=== PATIENT | female | born 1975 | race Caucasian/White ===

== ENCOUNTER 2024-02-07 08:04 | Day surgery (SDC) | payer MEDICAID, SELFPAY ==
[2024-02-07] VITALS (7 sets, daily range): BP systolic 79–115; BP diastolic 60–82; PULSE 72–82; RESP 16; TEMP 35.9–36.8; O2SAT 100; BMI 18.8
--- NOTE | 2024-02-07 08:21 | H&P.OPEN ---
[facility] - General General Date of Service: 02/07/24 HPI Narrative CHAS ORTEGA, is a 48 F who presents for screening colonoscopy. Patient is never had previous colonoscopy patient denies any family history of colon cancer. Patient's father did have a colostomy unsure the exact reason but appreciate it was not cancer. Patient has bowel movements daily denies any blood. Patient denies any chronic abdominal pain/nausea/vomiting/reflux. [facility] Medical History (Updated 02/02/24 @ 11:38 by Carolyn Quintanilla) ADHD Alcohol use Anemia Anxiety Former smoker Marijuana use Wears contact lenses Wears glasses Home Medications buspirone 10 mg tablet 10 mg PO BID 01/11/24 [History Last Taken 02/07/24 06:30] cholecalciferol (vitamin D3) 50 mcg (2,000 unit) capsule 50 mcg PO DAILY 01/11/24 [History Last Taken Unknown] magnesium oxide 400 mg PO DAILY 01/11/24 [History Last Taken Unknown] vitamin B complex (Complex B-100 tablet,extended release) 1 tab PO DAILY 01/11/24 [History Last Taken Unknown] Allergy/AdvReac Type Severity Reaction Status Date / Time No Known Allergies Allergy Verified 02/07/24 08:28 Family History (Updated 01/11/24 @ 12:29 by Susan Kenney) Father Colon polyps Colostomy status Father No problems noted. Surgical History (Updated 02/02/24 @ 11:38 by Carolyn Quintanilla) Hx of oral surgery Hx of wisdom tooth extraction Social History Smoking Status: Former smoker Past Medical/Surgical History Planned Operation Planned Operative Procedure/s: CSCOPE OA Previous Hospitalizations/Surgeries HX Hospitalizations: No Any Problems With Anesthesia: No You/Your Family Experience Fever (Hyperthermia) With Anes: No Cholinesterase deficiency: No Cardiovascular Hx Hypertension: No Respiratory Hx Sleep Apnea: No Hx Respiratory Tract Infection/Cold (presently): No Do You Snore Loudly (louder than talking or can be heard): No Do You Often Feel Tired/ Fatigued/ Sleepy Dring Daytime?: No Has Anyone Observed You Stop Breathing During Sleep?: No Result (for STOP score): Negative Smoking Status: Former smoker Neurological Does patient have nerve stimulator: No Reproduction : No Allergies No Known Allergies Allergy (Verified 02/07/24 08:28) Discharge Is Pt Admitted From a Long-Term, or a Shelter: No After D/C, Where Do you Plan to Go: Return Home Physical Exam Const alert, oriented x3 and no apparent distress HEENT normocephalic and head/scalp atraumatic Resp normal respiratory effort Cardio regular rate GI soft to palpation and non-tender; Negative for non-distended Palpation: Negative for guarding Extremity no clubbing, cyanosis or edema Skin no rashes or lesions noted Neuro CN's II-XII intact bilaterally Psych mental status grossly normal Assessment & Plan Assessment/Plan (1) Encounter for screening for malignant neoplasm of colon: Surgery Risks - Colonoscopy I discussed with the patient the risks of the procedure: Yes Risks Include but are not Limited To: Risks include but are not limited to: Bleeding, perforation requiring further surgery, inability to complete colonoscopy requiring barium enema.
--- OUTSIDE RECORDS SUMMARY | 2024-02-07 08:26 | XMS RPT_ITS | CCD ---
Author Name Unknown Address [address] [place] [address] Organization [facility] Care Team Providers Care Hot Strip Mill Inspector Name Role Phone PHYSICIAN, NO PCP Primary Care Unavailable Unavailable Primary Care Provider UnavailCHAPARRO Ledezma Attending Unavailable JESSICA MORTON Referring Unavailable JESSICA MORTON Referring Unavailable Medications Completed/Discontinued Medications Medication Drug Class(es) Dates Sig (Normalized) Sig (Original) busPIRone hydrochloride 10 mg oral tablet (1 source) Start: 10-06-2023 take 1 tablet by mouth every twelve hours busPIRone (BUSPAR) 10 mg tablet Take 1 tablet by mouth every 12 hours. 0 10/06/2023 Active Problems Active Problems Problem Classification Problem Date Documented Date Episodic/Chronic Alcohol-related disorders (1 source) Alcohol dependence, uncomplicated; Translations: [History of dementia associated with alcoholism (HCC)] Onset: 05-16-2023 Chronic Immunizations and screening for infectious disease (2 sources) Patient encounter status; Translations: [Encounter for screening for human papillomavirus (HPV)] 11-02-2023 Episodic Other screening for suspected conditions (not mental disorders or infectious disease) (1 source) Cancer cervix screening status; Translations: [Encounter for screening for malignant neoplasm of cervix] 11-02-2023 Episodic Past or Other Problems Problem Classification Problem Date Documented Da te Episodic/Chronic Other nutritional; endocrine; and metabolic disorders (1 source) Abnormal weight loss; Translations: [Loss of weight] Onset: 07-11-2023 Episodic Screening and history of mental health and substance abuse codes (1 source) Personal history of other mental and behavioral disorders; Translations: [History of dementia associated with alcoholism (HCC)] Onset: 05-16-2023 Episodic Results Test Name Value Interpretation Reference Range Facil ity Vital Signs Date Time Vital Sign Value Performing Clinician Faci lity 11-02-2023 14:02-0500 Body height 167 cm Chaparro Parhamcalf REGION MANAGER.WORM FARMER Work Phone: [facility] 11-02-2023 14:02-0500 Body weight 55.34 kg Chaparro Parhamcalf REGION MANAGER.WORM FARMER Work Phone: [facility] 11-02-2023 14:02-0500 Diastolic blood pressure 64 mm[Hg] Chaparro Geronimo REGION MANAGER.WORM FARMER Work Phone: [facility] 11-02-2023 14:02-0500 Systolic blood pressure 110 mm[Hg] Chaparro Feli REGION MANAGER.WORM FARMER Work Phone: [facility] Encounters Encounter Date Encounter Type Care Provider Facility Start: 11-02-2023 End: 11-02-2023 ambulatory CHAPARRO PARHAMCALF Facility:[facility] Start: 11-02-2023 End: 11-02-2023 Patient encounter procedure Chaparroblack Montesf REGION MANAGER.WORM FARMER Work Phone: OB/Gynecology Plan of Treatment Date Care Activity Detail Author Start: 07-11-2026 Diabetes Screening Diabetes Screening [facility] Start: 07-28-2023 Influenza vaccination Influenza Vaccine (#1) [facility] Start: 2022 Cologuard (FIT-DNA) Cologuard (FIT-DNA) [facility] Start: 2022 Colonoscopy Colonoscopy [facility] Start: 2022 Colorectal Cancer Screening Colorectal Cancer Screening [facility] Start: [address] Colonography [facility] Start: 2022 Fecal Occult Blood Fecal Occult Blood [facility] Start: 2022 Lipid 1996 panel - Serum or Plasma Lipid Screening [facility] Start: 2022 Sigmoidoscopy Sigmoidoscopy [facility] Start: 11-27-2022 Depression Assessment Depression Assessment [facility] Start: 2017 Mammography Mammogram Screening [facility] Start: 2007 HPV Testing HPV Testing [facility] Start: 1998 Pap Testing Pap Testing [facility] Start: 1996 Urine microalbumin profile DTaP,Tdap,Td Vaccine (1 - Tdap) [facility] Start: 1995 Hepatitis C Screening Hepatitis C Screening [facility] Start: 1995 HIV Screening HIV Screening [facility] Start: 06-09-1978 Covid-19 Vaccine (#1) Covid-19 Vaccine (#1) [facility] Start: 1975 Hepatitis B Vaccine (1 of 3 - 3-dose series) Hepatitis B Vaccine (1 of 3 - 3-dose series) [facility] End: 12-01-2024 LUISA SCREENING LUISA SCREENING Radiology Routine Encounter for screening mammogram for breast cancer 1 Occurrences starting 11/02/2023 until 12/01/2024 [facility] Work Phone: Payers Date Payer Category Payer Medicaid [employer] [id number] 2023-Present [phone] [address] [place] [address] Medicaid [id number] 2023 Medicaid [id number] 2022 [facility] [id number] 1975 Unknown [id number] Social History Date Type Detail Facility Start: 11-02-2023 Tobacco smoking status NHIS Ex-smoker [facility] Work Phone: History of tobacco use Current smoker [facility] Work Phone: History of tobacco use Cigarette Smoker [facility] Work Phone: Start: 11-02-2023 Tobacco use and exposure Smokeless tobacco non-user [facility] Work Phone: Start: 11-02-2023 Alcohol intake Ex-drinker (finding) [facility] Start: 11-02-2023 History of Social function [facility] Start: 11-02-2023 Tobacco use panel [facility] National Score (1-100), lower number is lower risk 48 [facility] Start: 11-02-2023 Education 17 [facility] Start: 11-02-2023 Tobacco Comment [facility] Start: 11-02-2023 Alcohol Comment 10 yr recovery for alcoholism [facility] Start: 1975 Sex Assigned At [facility] file [facility] NEGATED: Highlighted rowStart: JOHANF History of tobacco use Passive smoker [facility] Work Phone: Progress note 11-02-2023 Note Date & Type Note Facility 11-02-2023 Note HNO ID: [id number] Author: Chaparro Yan APRN.WORM FARMER Service: ? Author Type: Nurse Practitioner Type: Progress Notes Filed: 11/02/2023 2:30 PM Note Text: patient declined folder seamer Lea is a 47 year old who presents for an annual gynecologic exam without complaints. Menses: cycles every 25-30 days and 6-7 days of flow. Contraception: none HPV vaccine: No Last Pap: never Last mammogram: never Sexually active: Yes History of STDS: None OB History T0 L0 SAB0 IAB0 Ectopic0 Multiple0 Live Births0 General Duty Nurse History LMP: 10/12/2023, Having periods Age at Menarche: Age at First : Age at Menopause: General Duty Nurse History Comments: Sexual Activity: Yes; Female Contraception: No contraception data on record PAST MEDICAL HISTORY Diagnosis Date Alcohol dependence (HCC) recovery x10 yrs Generalized anxiety disorder PAST SURGICAL HISTORY Procedure Laterality Date NONE FAMILY HISTORY Problem Relation Age of Onset Vertigo Mother Lymphoma Father No Known Problems Brother SOCIAL HISTORY Social History Tobacco Use Smoking status: Former Types: Cigarettes Passive exposure: Never Smokeless tobacco: Never Tobacco comments: Pt vapes Vaping Use Vaping Use: current everyday user Substances: Nicotine Substance Use Topics Alcohol use: Not Currently Comment: 10 yr recovery for alcoholism Drug use: Never REVIEW OF SYSTEMS Abdomen: No abdominal pain, nausea, vomiting, diarrhea, or constipation. No bloating, early satiety, indigestion, or increased flatulence. Bladder: No dysuria, gross hematuria, urinary frequency, urinary urgency, or incontinence. Breast: No breast lumps, nipple d/c, overlying skin changes, redness or skin retraction. Allergies and current medication updated:Yes EXAM: Ht 5' 5.75 (1.67m) Wt 122 lb (55.3kg) LMP 10/12/2023 BMI 19.84 kg/(m2). GENERAL: pleasant, female in no apparent distress HEENT: Normocephalic, atraumatic, mucus membranes moist, and no lesions NECK: Supple, full range of motion, no adenopathy, and thyroid normal DERMATOLOGY: Normal, without lesions, non-icteric, and non-hirsute BREAST: soft, non-tender, symmetric, no dominant mass, normal nipple-areolar complex, no lymphadenopathy, and no nipple discharge CHEST: Normal inspiratory effort ABDOMEN: soft, non-tender, and no masses PELVIC: external genitalia normal, normal Bartholin's glands, urethra, Anamosa's glands, no vulvar lesions, no cervical lesions, good vaginal support, physiologic discharge present, normal appearing perineal body and perianal region BIMANUAL: uterus normal size, shape and consistency, no adnexal masses, and non-tender RECTOVAGINAL: deferred. NEURO: alert and oriented x3,exam grossly non-focal EXTREMITIES: normal ASSESSMENT/PLAN: 1) Health maintenance: Pap done with HPV. Mammogram ordered. Nutrition, exercise and routine health maintenance exams reviewed. Calcium/Vitamin D supplementation information provided. 2) Contraception: none. Contraceptive options reviewed and information provided. 3) STD screening: Declined STD check. 4) Follow up one year or sooner as needed Chaparro Yan APRN.NEREIDA [facility] History of Present illness Narrative 11-02-2023 Chaparro Yan APRN.NEREIDA - 11/02/2023 2:02 PM EST Note Date & Type Note Facility 11-02-2023 History of Presen t illness Narrative patient declined folder seamer Lea is a 47 year old who presents for an annual gynecologic exam without complaints. Menses: cycles every 25-30 days and 6-7 days of flow. Contraception: none HPV vaccine: No Last Pap: never Last mammogram: never Sexually active: Yes History of STDS: None OB History T0 L0 SAB0 IAB0 Ectopic0 Multiple0 Live Births0 General Duty Nurse History LMP: 10/12/2023, Having periods Age at Menarche: Age at First : Age at Menopause: General Duty Nurse History Comments: Sexual Activity: Yes; Female Contraception: No contraception data on record PAST MEDICAL HISTORY Diagnosis Date Alcohol dependence (HCC) recovery x10 yrs Generalized anxiety disorder PAST SURGICAL HISTORY Procedure Laterality Date NONE FAMILY HISTORY Problem Relation Age of Onset Vertigo Mother Lymphoma Father No Known Problems Brother SOCIAL HISTORY Social History Tobacco Use Smoking status: Former Types: Cigarettes Passive exposure: Never Smokeless tobacco: Never Tobacco comments: Pt vapes Vaping Use Vaping Use: current everyday user Substances: Nicotine Substance Use Topics Alcohol use: Not Currently Comment: 10 yr recovery for alcoholism Drug use: Never REVIEW OF SYSTEMS Abdomen: No abdominal pain, nausea, vomiting, diarrhea, or constipation. No bloating, early satiety, indigestion, or increased flatulence. Bladder: No dysuria, gross hematuria, urinary frequency, urinary urgency, or incontinence. Breast: No breast lumps, nipple d/c, overlying skin changes, redness or skin retraction. Allergies and current medication updated:Yes EXAM: Ht 5' 5.75 (1.67m) Wt 122 lb (55.3kg) LMP 10/12/2023 BMI 19.84 kg/(m^2). GENERAL: pleasant, female in no apparent distress HEENT: Normocephalic, atraumatic, mucus membranes moist, and no lesions NECK: Supple, full range of motion, no adenopathy, and thyroid normal DERMATOLOGY: Normal, without lesions, non-icteric, and non-hirsute BREAST: soft, non-tender, symmetric, no dominant mass, normal nipple-areolar complex, no lymphadenopathy, and no nipple discharge CHEST: Normal inspiratory effort ABDOMEN: soft, non-tender, and no masses PELVIC: external genitalia normal, normal Bartholin's glands, urethra, Anamosa's glands, no vulvar lesions, no cervical lesions, good vaginal support, physiologic discharge present, normal appearing perineal body and perianal region BIMANUAL: uterus normal size, shape and consistency, no adnexal masses, and non-tender RECTOVAGINAL: deferred. NEURO: alert and oriented x3,exam grossly non-focal EXTREMITIES: normal ASSESSMENT/PLAN: 1) Health maintenance: Pap done with HPV. Mammogram ordered. Nutrition, exercise and routine health maintenance exams reviewed. Calcium/Vitamin D supplementation information provided. 2) Contraception: none. Contraceptive options reviewed and information provided. 3) STD screening: Declined STD check. 4) Follow up one year or sooner as needed Chaparro Yan APRN.NEREIDA documented in this encounter [facility] Evaluation note Note Date & Type Note Facility documented in this encounter [facility] Reason for referral (narrative) Diagnostic Procedure Only (Routine) - Authorized Note Date & Type Note Facility Referral ID Status Reason Start Date Expiration Date Visits Requested Visits Authorized [id number] Authorized Auto-Generat ed Referral 11/02/2023 12/01/2024 1 1 [facility] Summary Purpose Family History No Family History Records FoundNo Family History Records FoundNo Family History Records Found Advance Directives No Advanced Directives Records FoundNo Advanced Directives Records FoundNo Advanced Directives Records Found Additional Source Comments INFORMATION SOURCE (unrecogn ized section and content) DATE CREATED AUTHOR AUTHOR'S ORGANIZ ATION 03/29/2022 [facility] DATE CREATED AUTHOR AUTHOR'S ORGANIZ ATION 11/14/2023 [facility] Source Comments (unrecognize d section and content) In the event this informatio n is protected by the Federal Confidentiality of Alcohol and Drug Abuse Patient Records regulations: The Federal rules restrict any use of the information to criminally investigate or prosecute any alcohol or drug abuse patient.[facility] Reason for Visit (unrecogniz ed section and content) FOR RECORDS PERTAINING TO PATIENTS WHO ARE OR HAVE BEEN ENROLLED IN A CHEMICAL DEPENDENCY/SUBSTANCEABUSE PROGRAM, SOME INFORMATION MAY BE OMITTED. This clinical summary was aggregated from multiple sources. Caution should be exercised in using it in the provision of clinical care. This summary normalizes information from multiple sources, and as a consequence, information in this document may materially change the coding, format and clinical context of patient data. In addition, data may be omitted in some cases. CLINICAL DECISIONS SHOULD BE BASED ON THE PRIMARY CLINICAL RECORDS. [facility] [employer] [facility]. provides no warranty or guarantee of the accuracy or completeness of information in this document.
[2024-02-07] MEDS: Lactated Ringers 1,000 ML 15 ML IV (08:41)
[2024-02-07 08:50] LABS: Internal QC Validated? YES +Cl - CLEAR BKGD; Pregnancy, Urine Negative Negative; Record Kit Lot#,Urine Preg HCG0000718086
--- NOTE | 2024-02-07 09:30 | COLBX_PTH ---
PATHOLOGY RESULTS PATIENT: CHAS ORTEGA LOC: EN U#:[id number] AGE/SX: 48/F ROOM: RE02/07/[address]: Dr. Jane Santiago MD : 1975 BED: DIS: 02/07/2024 SPEC #: [id number] RECD: 02/07/24 13:15 STATUS: MILAGRO RETricia #: [id number] SUSI: 02/07/24 09:[address]: Jane Santiago DEPT: SURGICAL PATHOLOGY RECD BY: Brigida Latif ENTERED: 02/07/24 13:15 SP TYPE: COLON BX OTHR DR: Arlin [facility] Tissues: Rectum, NOS Procedures: Surgery Specimen Level IV HEADER OPERATION: Colonoscopy, open access, polypectomy PRE-OP DIAGNOSIS: Encounter for screening for malignant neoplasm of colon TISSUE SUBMITTED: Rectal polyp, snare and biopsy MICROSCOPIC DIAGNOSIS Rectal polyp, polypectomy; Fragments of tubular adenoma. SJ/mr 02/08/2024 MICROSCOPIC DESCRIPTION Slides are reviewed. GROSS DESCRIPTION Received in fixative is one container labeled with the patient's name and designated Rectal polyp. The specimen consists of multiple irregular fragments of light urban soft tissue that in aggregate measure 1.0 x 1.0 x 0.1 cm. The specimen is totally submitted in one cassette. / 02/07/2024 TC:1 CPT: 82766
--- NOTE | 2024-02-07 10:16 | OP.COLON_ITS ---
Patient Name: Linette Singh Procedure Date: 02/07/2024 9:17 AM Date of : 1975 Age: 48 Procedure: Colonoscopy Indications: Screening for colorectal malignant neoplasm Providers: Jane Santiago MD Referring MD: Jane Santiago MD Medicines: Monitored Anesthesia Care Patient Profile: This is a 48 year old female. Last Colonoscopy: none. The patient's first colonoscopy is today. Complications: No immediate complications. Procedure: Pre-Anesthesia Assessment: - Prior to the procedure, a History and Physical was performed, and patient medications and allergies were reviewed. The patient's tolerance of previous anesthesia was also reviewed. The risks and benefits of the procedure and the sedation options and risks were discussed with the patient. All questions were answered, and informed consent was obtained. Prior Anticoagulants: The patient has taken no anticoagulant or antiplatelet agents. ASA Grade Assessment: Per anesthesia. After reviewing the risks and benefits, the patient was deemed in satisfactory condition to undergo the procedure. - Prior to the procedure, a History and Physical was performed, and patient medications and allergies were reviewed. The patient's tolerance of previous anesthesia was also reviewed. The risks and benefits of the procedure and the sedation options and risks were discussed with the patient. All questions were answered, and informed consent was obtained. Prior Anticoagulants: The patient has taken no anticoagulant or antiplatelet agents. ASA Grade Assessment: Per anesthesia. After reviewing the risks and benefits, the patient was deemed in satisfactory condition to undergo the procedure. After I obtained informed consent, the scope was passed under direct vision. Throughout the procedure, the patient's blood pressure, pulse, and oxygen saturations were monitored continuously. The colonoscope was introduced through the anus and advanced to the cecum, identified by the appendiceal orifice, ileocecal valve and palpation. The colonoscopy was technically difficult and complex due to significant looping and a tortuous colon. The patient tolerated the procedure well. The quality of the bowel preparation was good. Scope In: 9:24:23 AM Scope Withdrawal Time 0 hours 26 minutes 2 seconds Scope Out: 10:09:41 AM Total Procedure Duration Time 0 hours 45 minutes 18 seconds Findings: The perianal and digital rectal examinations were normal. An 8 mm polyp was found in the rectum at about 10-12cm. The polyp was carpet-like and semi-pedunculated. Polypectomy was attempted, initially using a piecemeal technique with a hot snare. Polyp resection was incomplete with this device. This intervention then required a different device and polypectomy technique. The polyp was removed with a cold biopsy forceps. Resection and retrieval were complete. The exam was otherwise without abnormality on direct and retroflexion views. Impression: - One 8 mm polyp in the rectum, removed with a cold biopsy forceps. Resected and retrieved. - The examination was otherwise normal on direct and retroflexion views. Recommendation: - Discharge patient to home. - Resume previous diet. - Continue present medications. - Await pathology results. - Repeat colonoscopy in 1 year for surveillance after piecemeal polypectomy. Procedure Code(s): --- Professional --- 41431, PT, Colonoscopy, flexible; with biopsy, single or multiple Diagnosis Code(s): --- Professional --- Z12.11, Encounter for screening for malignant neoplasm of colon D12.8, Benign neoplasm of rectum CPT copyright 2021 [employer]. All rights reserved. The codes documented in this report are preliminary and upon classifier tender review may be revised to meet current compliance requirements. MD Jane Jordan MD 02/07/2024 10:15:59 AM This report has been signed electronically. Number of Addenda: 0 Note Initiated On: 02/07/2024 9:17 AM
--- NOTE | 2024-02-07 10:17 | OP.CCLET_ITS ---
02/07/2024 Arlin Barraza [facility] Re : Colonoscopy [facility] This procedure was performed on Wednesday, February 07, 2024. My impressions and recommendations are as follows: Impressions : - One 8 mm polyp in the rectum, removed with a cold biopsy forceps. Resected and retrieved. - The examination was otherwise normal on direct and retroflexion views. Recommendations : - Discharge patient to home. - Resume previous diet. - Continue present medications. - Await pathology results. - Repeat colonoscopy in 1 year for surveillance after piecemeal polypectomy. My findings are described in the full procedure note, which is enclosed. If I can be of further assistance, please feel free to contact me at Doctor phone number(s): , Work: . Sincerely, MD Jane Jordan MD 02/07/2024 10:15:59 AM This report has been signed electronically.
== END 2024-02-07 10:56 | disposition home or self-care (01) ==
LOC: EN 08:06 → AC 08:08
PROVIDERS: Anesthesiology; Referring Provider Surgery; Visit Provider Surgery
PROC: 0DJD8ZZ Inspection of Lower Intestinal Tract, Via Natural or Artificial Opening Endoscopic (ICD-10-PCS; CPT 45378; principal; 2024-02-07 09:25)
DX: Z12.11 Encounter for screening for malignant neoplasm of colon (principal); K62.1 Rectal polyp; Z87.891 Personal history of nicotine dependence; F41.9 Anxiety disorder, unspecified; Z79.899 Other long term (current) drug therapy; Q43.8 Other specified congenital malformations of intestine
CPT/HCPCS: 45380; 81025; 88305; J7120; J2405

== ENCOUNTER 2024-03-24 14:37 | Emergency (ER) | payer MEDICAID, SELFPAY ==
[2024-03-24 14:37] VITALS: BP 120/60; PULSE 106; RESP 14; TEMP 36.9; O2SAT 97; BMI 20.6
--- NOTE | 2024-03-24 14:57 | EX.ED.GENINJ ---
HPI <ANNE MARIE Solitario - Last Filed: 03/24/24 15:31> History of Present Illness Chief Complaint: Bite Narrative Narrative: Patient presenting today due to a dog bite that occurred this afternoon. She has a bite to her posterior left calf and posterior right thigh. She reports that she was hosting a garage sale and her neighbor came over with her 2 dogs, one of the dogs became loose and bit her. The dog is up-to-date on vaccines. She denies any other injury. Tetanus Immunization: Unknown PFS <ANNE MARIE Solitario - Last Filed: 03/24/24 15:31> [facility] Medical History ADHD Alcohol use Anemia Anxiety Former smoker Marijuana use Wears contact lenses Wears glasses Home Medications buspirone 10 mg tablet 10 mg PO BID 01/11/24 [History Last Taken 02/07/24 06:30] cholecalciferol (vitamin D3) 50 mcg (2,000 unit) capsule 50 mcg PO DAILY 01/11/24 [History Last Taken Unknown] magnesium oxide 400 mg PO DAILY 01/11/24 [History Last Taken Unknown] vitamin B complex (Complex B-100 tablet,extended release) 1 tab PO DAILY 01/11/24 [History Last Taken Unknown] amoxicillin 875 mg-potassium clavulanate 125 mg tablet 1 tab PO BID 4 days #8 tabs 03/24/24 [Rx Last Taken Unknown] Allergy/AdvReac Type Severity Reaction Status Date / Time No Known Allergies Allergy Verified 03/24/24 14:42 Family History Father Colon polyps Colostomy status Father No problems noted. Surgical History Hx of oral surgery Hx of wisdom tooth extraction Social History Smoking Status: Former smoker ROS <ANNE MARIE Solitario - Last Filed: 03/24/24 15:31> ROS ED Constitutional Constitutional ED: Denies chills or fever(s) Cardiovascular Cardiovascular: Denies chest pain Respiratory/Chest Respiratory/Chest: Denies cough or dyspnea Gastrointestinal Gastrointestinal: Denies abdominal pain, nausea or vomiting Musculoskeletal Musculoskeletal: Reports myalgias Integumentary Reports wounds Neurologic Neurologic: Denies paresthesias or weakness EXAM <ANNE MARIE Solitario - Last Filed: 03/24/24 15:31> Physical Exam Const Vital Signs: 03/24/24 14:37 03/24/24 15:29 Temperature 98.4 F 98.2 F Temperature Source Temporal Pulse Rate 106 H 62 Respiratory Rate 14 16 Blood Pressure 120/60 126/65 H Blood Pressure Mean 80 85 Pulse Ox 97 100 Oxygen Delivery Method Room Air Positive well nourished, well developed and no apparent distress General Appearance ED: well developed HEENT Reports normocephalic and head/scalp atraumatic Mouth ED: Yes moist mucous membranes normal Eyes PERRL and EOMs intact bilaterally Neck full ROM and supple Chest Wall inspection of chest normal Resp normal respiratory effort and clear to auscultation bilaterally Cardio regular rate and regular rhythm GI soft to palpation, non-tender, non-distended and no masses Back/Spine normal ROM and normal to inspection Extremity full ROM Neuro oriented x3, CN's II-XII intact bilaterally, moves all extremities, no focal motor deficits and no sensory deficits noted Sensorium / Orientation: awake and alert Psych mental status grossly normal and thought process normal Skin Skin Narrative: Small abrasion to the posterior aspect of the left calf, small superficial bite wound to the posterior aspect of the right thigh below the right glute. <Dr. Jerson Bahena MD - Last Filed: 03/24/24 15:42> Physical Exam Const Vital Signs: 03/24/24 14:37 03/24/24 15:29 Temperature 98.4 F 98.2 F Temperature Source Temporal Pulse Rate 106 H 62 Respiratory Rate 14 16 Blood Pressure 120/60 126/65 H Blood Pressure Mean 80 85 Pulse Ox 97 100 Oxygen Delivery Method Room Air MDM <ANNE MARIE Solitario - Last Filed: 03/24/24 15:31> [facility] MDM Narrative Medical decision making narrative: Patient presenting due to 2 dog bites that occurred this afternoon. She is well-appearing and in no acute distress. Tetanus will be updated. She will be placed on Augmentin. No evidence of infection or neurovascular compromise. Patient will be discharged home in stable condition. I have personally performed a face to face assessment of the patient and have reviewed the ANALILIA Note. I performed a substantive portion of the visit including all aspects of the following. My tavares findings include: History is remarkable for dog bite to left calf and dog bite proximal posterior right thigh. Dog's immunization up-to-date. Patient's last tetanus is unknown. She denies paresthesia, anesthesia medics. She denies allergy to antibiotics. Exam is remarkable for 2 puncture wounds mid left calf. There is a small skin tag/devitalized tissue. There is no evidence infection. There is no neurovasc compromise. Patient also has puncture wound from dog bite proximal posterior right thigh inferior the gluteal crease. There is also superficial wounds. Both areas are consistent with dog bite. There is no neurovasc Otomize of the right lower extremity Medical Decision Making cleanse wound, update tetanus and 3-day course of Augmentin for prophylaxis due to dog bite. Other additions or changes: [None] <Dr. Jerson Bahena MD - Last Filed: 03/24/24 15:42> [facility] MDM Narrative Medical decision making narrative: I have personally performed a face to face assessment of the patient and have reviewed the ANALILIA Note. I performed a substantive portion of the visit including all aspects of the following. My tavares findings include: History is remarkable for dog bite to left calf and dog bite proximal posterior right thigh. Dog's immunization up-to-date. Patient's last tetanus is unknown. She denies paresthesia, anesthesia medics. She denies allergy to antibiotics. Exam is remarkable for 2 puncture wounds mid left calf. There is a small skin tag/devitalized tissue. There is no evidence infection. There is no neurovasc compromise. Patient also has puncture wound from dog bite proximal posterior right thigh inferior the gluteal crease. There is also superficial wounds. Both areas are consistent with dog bite. There is no neurovasc Otomize of the right lower extremity Medical Decision Making cleanse wound, update tetanus and 3-day course of Augmentin for prophylaxis due to dog bite. Other additions or changes: [None] Discharge Plan Triage Chief Complaint: Bite ED Midlevel Provider: Dania Pisano ED Provider: Jerson Bahena Dx/Rx/DC Orders Clinical Impression: Open wound of right thigh due to dog bite, Dog bite of left calf Instructions: ED Dog Bite Prescriptions: New amoxicillin-pot clavulanate 875-125 mg tablet 1 tab PO BID 4 Days Qty: 8 0RF No Action buspirone 10 mg tablet 10 mg PO BID Complex B-100 Tablet Extended Release 1 tab PO DAILY cholecalciferol (vitamin D3) 50 mcg (2,000 unit) capsule 50 mcg PO DAILY magnesium oxide 400 mg magnesium tablet 400 mg PO DAILY [facility] - Activity Restrictions/Additional Instructions: Follow-up with PCP or return for any signs of infection. Disposition Disposition: Home, Self Care Discharge Date/Time: 03/24/24 15:35
[2024-03-24] MEDS: Diphth,Pertuss(Acell),Tet Vac 0.5 ML Vial IM (15:14)
--- NOTE | 2024-03-24 15:19 | ED.RN ---
tetnus given per this rn
[2024-03-24 15:29] VITALS: BP 126/65; PULSE 62; RESP 16; TEMP 36.8; O2SAT 100
== END 2024-03-24 15:35 | disposition home or self-care (01) ==
LOC: ED 15:09
PROVIDERS: Emergency Provider Emergency Medicine; Visit Provider Emergency Medicine
DX: S71.151A Open bite, right thigh, initial encounter (principal); Z87.891 Personal history of nicotine dependence; S81.832A Puncture wound without foreign body, left lower leg, initial encounter; F41.9 Anxiety disorder, unspecified; Z79.899 Other long term (current) drug therapy; Z23 Encounter for immunization; W54.0XXA Bitten by dog, initial encounter; Y93.89 Activity, other specified; Y92.59 Other trade areas as the place of occurrence of the external cause
CPT/HCPCS: 90715; 99283